=== PATIENT | male | born 1965 | race Caucasian/White ===

== ENCOUNTER 2025-04-12 07:47 | Day surgery (SDC) | payer OTHER ==
[2025-03-22 08:47] VITALS: BMI 25.8
[2025-04-12] MEDS ORDERED: PROPOFOL 60 ML ONE (09:55)
== END 2025-04-12 12:00 | disposition home or self-care (01) ==
LOC: CSHSDC 07:47
PROVIDERS: ATTEND Surgery
PROC: 0DJ08ZZ Inspection of Upper Intestinal Tract, Via Natural or Artificial Opening Endoscopic (ICD-10-PCS; principal; 2025-04-12)
PROC: 0DJD8ZZ Inspection of Lower Intestinal Tract, Via Natural or Artificial Opening Endoscopic (ICD-10-PCS; principal; 2025-04-12)
DX: Z12.11 Encounter for screening for malignant neoplasm of colon (principal); K57.30 Diverticulosis of large intestine without perforation or abscess without bleeding; K44.9 Diaphragmatic hernia without obstruction or gangrene; I10 Essential (primary) hypertension; E78.5 Hyperlipidemia, unspecified; Z87.891 Personal history of nicotine dependence; Z79.899 Other long term (current) drug therapy
CPT/HCPCS: J2704